=== PATIENT | male | born 1975 | race Caucasian/White ===

== ENCOUNTER 2021-10-24 09:37 | Day surgery (SDC) | payer BC ==
[~2021-10-24] VITALS: Ht 180.3 cm; Wt 110.4 kg
[2021-10-24] VITALS (10 sets, daily range): BP systolic 116–129; BP diastolic 87–101; PULSE 92–100
[2021-10-24] MEDS ORDERED: COREG 6.256.25 MG/TA PO (09:59)
[2021-10-24] MEDS ORDERED: ASPIRIN E.C. 8181 MG PO (09:59)
[2021-10-24] MEDS ORDERED: GLUCOPHAGE500 MG/TAB PO (09:59)
[2021-10-24] MEDS ORDERED: ALTACE 2.5MG T2.5 MG PO (10:00)
[2021-10-24] MEDS ORDERED: ALDACTONE 25MG25 M1 PO ×2 (10:00→14:46)
[2021-10-24 10:21] LABS: HEMATOCRIT 50.3 % (42.0-52.0); HEMOGLOBIN 16.8 g/dl (13.5-18.0); MEAN CELL VOLUME 79 fl (80.0-100.0); MEAN CORPUSCULAR HEMOGLOBIN 27 pg (27.0-31.0); MEAN CORPUSCULAR HGB CONC 33 g/dl (33.0-37.0); MEAN PLATELET VOLUME 10.4 fl (7.4-10.4); PLATELET COUNT 182 K/mm3 (130-400); RED BLOOD COUNT 6.35 M/mm3 (4.20-5.60); REDCELL DISTRIBUTION WIDTH-CV 15.1 % (11.5-14.5)
[2021-10-24 10:29] LABS: INR 1.1 (0.8-3.0); PROTHROMBIN TIME 11.7 SECONDS (9.7-12.8)
[2021-10-24 10:32] LABS: PARTIAL THROMBOPLASTIN TIME 30.1 SECONDS (26.0-37.0)
[2021-10-24 10:35] LABS: CALCIUM 9.7 mg/dL (8.4-10.2); CREATININE, serum 1.23 mg/dL (0.72-1.25); POTASSIUM 4.3 mmol/L (3.5-4.5)
--- NOTE | 2021-10-24 11:24 | NUR ---
SEE MERGE FOR ALL MEDICATION ADMINISTRATION TIMES, INTRA AND POST SEDATION ASSESSMENTS
--- NOTE | 2021-10-24 12:05 | NUR ---
Pt back to express after heart cath. Pt is alert and oriented, pwd with reg and unlabored respirations. NSR on monitor. TR band to rt wrist, cms intact distal. pt updated on poc, call light in reach. Lunch ordered. call light in reach
--- NOTE | 2021-10-24 15:10 | NUR ---
Air removed from TR band in 2ml increments with no bleeding or complication. Rt radial puncture site covered with folded 2x2 and bandaid. Pt has been sitting up in chair, and gait is steady around room. INT DC'd with catheter intact. DC instructions reviewed with pt and , both express understanding. Pt is assisted out to 's car by wheelchair.
== END 2021-10-24 17:33 | disposition home or self-care (01) ==
LOC: COL.CAR 09:37
PROVIDERS: Internal Medicine Cardiovascular Disease
DX: I42.0 Dilated cardiomyopathy (principal); R06.01 Orthopnea; I10 Essential (primary) hypertension; E11.9 Type 2 diabetes mellitus without complications; G47.30 Sleep apnea, unspecified; Z79.84 Long term (current) use of oral hypoglycemic drugs; Z87.891 Personal history of nicotine dependence
CPT/HCPCS: C1769; C1887; J1644; J2250; J3010